=== PATIENT | female | born 1955 | race Caucasian/White ===

== ENCOUNTER 2021-01-23 23:09 | Inpatient (IN) | payer MEDICARE ==
[~2021-01-23] VITALS: Ht 165.1 cm; Wt 97.5 kg
[~2021-01-23 23:09] MED LIST: AMLODIPINE BESYL5 MG PO; ASPIR 8181 MG PO; AUGMENTIN 500-1 EACH PO; BUMETANIDE2 MG PO; CATAPRES 0.1MG0.1 MG PO; COMBIVENT RESPIM4 GM INH; CRESTOR40 MG PO; CYMBALTA60 MG PO; DEMADEX 20 MG T20 MG PO; DIOVAN160 MG PO; DOXYCYCLINE HY100 M2 PO; FERROUS SULFAT325 M2 PO; HUMALOG 10100 UNITS/ SC; HYDRALAZINE HCL50 MG PO; HYDROCODON-ACE1 EAC6 PO; LANTUS INS100 UTS/M1 SQ; LANTUS SOL100 UNIT/1 SQ; LANTUS100 UNIT/1 SQ; LASIX40 MG PO; METOPROLOL SUC100 MG PO; NEURONTIN400 MG PO; NEURONTIN800 MG PO; NITROSTAT0.4 MG SL; NORVASC10 MG PO; PERCOCET 10-321 EACH PO; PLAVIX75 MG PO; PROTONIX 40 MG40 M1 PO; SYNTHROID175 MCG PO; TOPROL XL100 MG PO; TRAZODONE HCL100 MG PO; ZETIA10 MG PO; [UNRECOGNIZED DRUG - CODE] SQ
[2021-01-24] MEDS ORDERED: HYDRALAZINE HCL50 MG PO (00:59)
[2021-01-24] MEDS ORDERED: GAS-X125 MG PO (08:47)
[2021-01-24] MEDS ORDERED: DRISDOL1250 MCG PO (09:05)
[2021-01-25 02:35] LABS: HEMOGLOBIN 10.3 gm/dl (12.3-15.3); RED BLOOD COUNT 4.18 M/UL (4.00-5.10); WHITE BLOOD COUNT 10.3 K/UL (4.5-11.0)
--- NOTE | 2021-01-25 13:40 | NUR ---
ST NOTIFIED OF NEW CONSULT
[2021-01-26 03:56] LABS: HEMOGLOBIN 10.9 gm/dl (12.3-15.3); RED BLOOD COUNT 4.45 M/UL (4.00-5.10); WHITE BLOOD COUNT 10.1 K/UL (4.5-11.0)
[2021-01-27 03:21] LABS: HEMOGLOBIN 10.7 gm/dl (12.3-15.3); RED BLOOD COUNT 4.39 M/UL (4.00-5.10); WHITE BLOOD COUNT 10.1 K/UL (4.5-11.0)
--- NOTE | 2021-01-27 10:30 | NUR ---
SPOKE TO A NURSE PRACTIONER MRS. ARMANDO AT [facility] RE BLADDER STIMULATOR TO SEE IF IT MRI COMPATABLE PER DR. FLORES REQUEST AND SHE STATES THEY DO NOT HAVE THE SERIAL NUMBER TO THE STIMULATOR BUT WOULD REACH OUT TO A REP FOR THE DEVICE AND GET BACK TO ME.
[2021-01-28 02:30] LABS: HEMOGLOBIN 10.5 gm/dl (12.3-15.3); RED BLOOD COUNT 4.23 M/UL (4.00-5.10); WHITE BLOOD COUNT 9.3 K/UL (4.5-11.0)
[2021-01-28 12:13] LABS: CREATININE, URINE 29.2 mg/dL (Not Estab.)
[2021-01-30 03:08] LABS: HEMOGLOBIN 10.2 gm/dl (12.3-15.3); RED BLOOD COUNT 4.13 M/UL (4.00-5.10); WHITE BLOOD COUNT 8.1 K/UL (4.5-11.0)
[2021-01-30 08:44] LABS: URINE CREATININE 67.8 mg/dL
[2021-02-01 02:43] LABS: RED BLOOD COUNT 4.12 M/UL (4.00-5.10); WHITE BLOOD COUNT 7.7 K/UL (4.5-11.0)
[2021-02-02 04:29] LABS: HEMOGLOBIN 10.1 gm/dl (12.3-15.3); RED BLOOD COUNT 4.14 M/UL (4.00-5.10); WHITE BLOOD COUNT 8.4 K/UL (4.5-11.0)
[2021-02-02 10:15] LABS: HBSAG SCREEN Negative (Negative); HEP B CORE AB, TOT Negative (Negative); HEP C VIRUS AB <0.1 (0.0-0.9)
[2021-02-02 13:10] LABS: ANTISTREPTOLYSIN O AB 51.6 IU/mL (0.0-200.0); COMPLEMENT C3, SERUM 122 mg/dL (82-167); COMPLEMENT C4, SERUM 30 mg/dL (12-38)
[2021-02-02 14:12] LABS: ANTI-DSDNA ANTIBODIES 3 IU/mL (0-9)
[2021-02-02 16:12] LABS: ATYPICAL PANCA <1:20 titer (Neg:<1:20); CYTOPLASMIC (C-ANCA) <1:20 titer (Neg:<1:20); PERINUCLEAR (P-ANCA) <1:20 titer (Neg:<1:20)
[2021-02-02 17:12] LABS: A/G RATIO 0.7 (0.7-1.7); ALBUMIN 2.2 g/dL (2.9-4.4); ALPHA-1-GLOBULIN 0.5 g/dL (0.0-0.4); ALPHA-2-GLOBULIN 1.1 g/dL (0.4-1.0); BETA GLOBULIN 1.1 g/dL (0.7-1.3); GAMMA GLOBULIN 0.5 g/dL (0.4-1.8); GLOBULIN, TOTAL 3.2 g/dL (2.2-3.9); IMMUNOGLOBULIN A, QN, SERUM 375 mg/dL (87-352); IMMUNOGLOBULIN G, QN, SERUM 614 mg/dL (586-1602); IMMUNOGLOBULIN M, QN, SERUM 72 mg/dL (26-217); M-SPIKE Not Observed g/dL (Not Observed); PROTEIN, TOTAL, SERUM 5.4 g/dL (6.0-8.5)
--- NOTE | 2021-02-03 12:16 | NUR ---
SPOKE WITH MEDICAL RECORDS AT [facility] IN [place] REGARDING THE PATIENT HAD A BLADDER CATH PLACED IN [address] TALBERT STATES SHE IS UNSURE IF THE PATIENT CAN HAVE MRI WITH THIS IN PLACE. MEDICAL RECORDS STATE THAT A FACE SHEET AND REQUEST OF WHAT WE NEED WHICH IS THOSE MEDICAL RECORDS WHERE THE BLADDER CATH WAS PLACED TO BE FAXED OVER. I FAXED THOSE OVER TO FAX NUMBER . PHONE NUMBER TO [facility] IS . AWAITING FOR THOSE RECORDS TO BE FAXED BACK AT THIS TIME DR TALBERT MADE AWARE.
[2021-02-04 04:01] LABS: HEMOGLOBIN 10.4 gm/dl (12.3-15.3); RED BLOOD COUNT 4.27 M/UL (4.00-5.10); WHITE BLOOD COUNT 9.2 K/UL (4.5-11.0)
[2021-02-04] MEDS ORDERED: CRESTOR 10 MG T10 MG PO (08:49)
[2021-02-04] MEDS ORDERED: HYDRALAZINE HCL50 MG PO (08:49)
[2021-02-04] MEDS ORDERED: BUMETANIDE1 MG PO (08:49)
[2021-02-04] MEDS ORDERED: LOPRESSOR 50 MG50 MG PO (08:49)
[2021-02-04] MEDS ORDERED: CATAPRES 0.1MG0.1 MG PO (08:49)
[2021-02-04] MEDS ORDERED: GABAPENTIN300 MG PO (08:49)
[2021-02-04] MEDS ORDERED: ISORDIL TAB 3030 MG PO ×2 (09:32→09:36)
[2021-02-04] MEDS ORDERED: CONSTULOSE10 GM/15 M PO (09:42)
[2021-02-04] MEDS ORDERED: ISOSORBIDE MON120 MG PO (11:20)
[2021-02-05 11:21] LABS: HEMOGLOBIN 10.2 gm/dl (12.3-15.3); RED BLOOD COUNT 4.23 M/UL (4.00-5.10)
[2021-02-05 11:24] LABS: WHITE BLOOD COUNT 11.6 K/UL (4.5-11.0)
[2021-02-06 04:21] LABS: HEMOGLOBIN 10.1 gm/dl (12.3-15.3); RED BLOOD COUNT 4.07 M/UL (4.00-5.10); WHITE BLOOD COUNT 11.2 K/UL (4.5-11.0)
[2021-02-07 05:08] LABS: HEMOGLOBIN 10.1 gm/dl (12.3-15.3); RED BLOOD COUNT 4.03 M/UL (4.00-5.10)
[2021-02-07 05:09] LABS: WHITE BLOOD COUNT 8.2 K/UL (4.5-11.0)
[2021-02-08 10:59] LABS: URINE CREATININE 44.6 mg/dL
[2021-02-08 20:31] LABS: HEMOGLOBIN 9.4 gm/dl (12.3-15.3); RED BLOOD COUNT 3.82 M/UL (4.00-5.10); WHITE BLOOD COUNT 8.6 K/UL (4.5-11.0)
[2021-02-09 06:26] LABS: HEMOGLOBIN 9.6 gm/dl (12.3-15.3); RED BLOOD COUNT 3.92 M/UL (4.00-5.10); WHITE BLOOD COUNT 8.1 K/UL (4.5-11.0)
[2021-02-10 02:23] LABS: HEMOGLOBIN 9.3 gm/dl (12.3-15.3); RED BLOOD COUNT 3.79 M/UL (4.00-5.10); WHITE BLOOD COUNT 7.3 K/UL (4.5-11.0)
[2021-02-11 02:46] LABS: HEMOGLOBIN 9.6 gm/dl (12.3-15.3); RED BLOOD COUNT 3.89 M/UL (4.00-5.10); WHITE BLOOD COUNT 8.9 K/UL (4.5-11.0)
[2021-02-11] MEDS ORDERED: COZAAR 50MG TAB50 MG PO (10:50)
[2021-02-11] MEDS ORDERED: AMLODIPINE BESYL5 MG PO (10:50)
[2021-02-11] MEDS ORDERED: HYDRALAZINE HCL50 MG PO (10:50)
[2021-02-11] MEDS ORDERED: ISORDIL TAB 2020 MG PO (10:50)
[2021-02-11] MEDS ORDERED: CARVEDILOL12.5 MG PO (10:50)
[2021-02-11] MEDS ORDERED: ZETIA10 MG PO (10:55)
[2021-02-11] MEDS ORDERED: POLYETHYLENE GL17 GM PO (10:55)
[2021-02-11] MEDS ORDERED: FERROUS GLUCON324 M1 PO (10:55)
[2021-02-11] MEDS ORDERED: SENNA LAX8.6 MG PO (10:55)
--- NOTE | 2021-02-11 15:55 | NUR ---
FAXED PAPERWORK TO [facility] AT 1330 TODAY. FAX RECIEVED SHEET PRINTED. CALLED EMS AT 1530 ASKING FOR PROGRESS ON PICKUP, BESSIE STATED THE FAX WASNT RECIEVED, EMS DID NOT COMMUNICATE THIS TO THE FACILITY. THE INFORMATION WAS FAXED AGAIN TODAY AT 1545, AGAIN FAX RECEIVED SHEET PRINTED. CALLED EMS AT 1600 TO MAKE SURE INFORMATION HAD BEEN RECEICED, BESSIE STATED IT WAS RECEIVED AND A UNIT IS ON THE WAY
== END 2021-02-11 16:25 | DRG 291 ==
LOC: PROG CARE 01-24 01:42
PROVIDERS: Family Medicine; Internal Medicine; Internal Medicine Nephrology; ADMIT Internal Medicine
DX: I13.0 Hypertensive heart and chronic kidney disease with heart failure and stage 1 through stage 4 chronic kidney disease, or unspecified chronic kidney disease (principal); I50.43 Acute on chronic combined systolic (congestive) and diastolic (congestive) heart failure; I63.89 Other cerebral infarction; N18.5 Chronic kidney disease, stage 5; N04.9 Nephrotic syndrome with unspecified morphologic changes; G81.91 Hemiplegia, unspecified affecting right dominant side; N17.9 Acute kidney failure, unspecified; G93.49 Other encephalopathy; M79.7 Fibromyalgia; I13.2 Hypertensive heart and chronic kidney disease with heart failure and with stage 5 chronic kidney disease, or end stage renal disease; E11.22 Type 2 diabetes mellitus with diabetic chronic kidney disease; E03.9 Hypothyroidism, unspecified; D50.9 Iron deficiency anemia, unspecified; K59.00 Constipation, unspecified; I25.10 Atherosclerotic heart disease of native coronary artery without angina pectoris; J44.9 Chronic obstructive pulmonary disease, unspecified; F17.200 Nicotine dependence, unspecified, uncomplicated; E78.5 Hyperlipidemia, unspecified; K21.9 Gastro-esophageal reflux disease without esophagitis; F32.9 Major depressive disorder, single episode, unspecified; G89.29 Other chronic pain; I16.0 Hypertensive urgency; I65.09 Occlusion and stenosis of unspecified vertebral artery; E87.6 Hypokalemia; Z20.822 Contact with and (suspected) exposure to COVID-19; M47.816 Spondylosis without myelopathy or radiculopathy, lumbar region; Z90.721 Acquired absence of ovaries, unilateral; Z87.442 Personal history of urinary calculi; Z90.710 Acquired absence of both cervix and uterus; Z90.49 Acquired absence of other specified parts of digestive tract; Z82.49 Family history of ischemic heart disease and other diseases of the circulatory system; Z88.8 Allergy status to other drugs, medicaments and biological substances
CPT/HCPCS: 36415; 70450; 74230; 76700; 80048; 80053; 80069; 80307; 82043; 82140; 82550; 82553; 82565; 82570; 82575; 82728; 82784; 82962; 83520; 83540; 83550; 83735; 83883; 84132; 84155; 84156; 84165; 84484; 85025; 85027; 86038; 86060; 86160; 86162; 86225; 86256; 86334; 86704; 86706; 86708; 86803; 87340; 87635; 92526; 92610; 92611-GN; 93005; 93880; 94640; 94664; 94760; 97110; 97110-GP-CQ; 97162; 97166; 97530; 97530-GP-CQ; 97535; J0360; J1205; J1644; J1756; J1940; U0002

== ENCOUNTER 2021-02-16 01:49 | Inpatient (IN) | payer MEDICARE ==
[~2021-02-16] VITALS: Ht 165.1 cm; Wt 97.2 kg
[~2021-02-16 01:49] MED LIST changes: +BUMETANIDE1 MG PO; +CARVEDILOL12.5 MG PO; +CONSTULOSE10 GM/15 M PO; +COZAAR 50MG TAB50 MG PO; +CRESTOR 10 MG T10 MG PO; +DRISDOL1250 MCG PO; +FERROUS GLUCON324 M1 PO; +GABAPENTIN300 MG PO; +GAS-X125 MG PO; +ISORDIL TAB 2020 MG PO; +ISORDIL TAB 3030 MG PO; +ISOSORBIDE MON120 MG PO; +LOPRESSOR 50 MG50 MG PO; +POLYETHYLENE GL17 GM PO; +SENNA LAX8.6 MG PO
[2021-02-16 02:11] LABS: RED BLOOD COUNT 3.64 M/UL (4.00-5.10); WHITE BLOOD COUNT 11.1 K/UL (4.5-11.0)
[2021-02-17 03:30] LABS: HEMOGLOBIN 8.9 gm/dl (12.3-15.3); RED BLOOD COUNT 3.58 M/UL (4.00-5.10)
[2021-02-17 10:42] LABS: LDH, BODY FLUID 70 U/L; TOTAL PROTEIN, BODY FLUID 1.8 gm/dL
[2021-02-17 12:05] LABS: BODY FLUID SOURCE PLEURAL
[2021-02-18 03:35] LABS: HEMOGLOBIN 8.7 gm/dl (12.3-15.3); RED BLOOD COUNT 3.5 M/UL (4.00-5.10); WHITE BLOOD COUNT 9.5 K/UL (4.5-11.0)
[2021-02-19 03:45] LABS: RED BLOOD COUNT 3.66 M/UL (4.00-5.10); WHITE BLOOD COUNT 11.3 K/UL (4.5-11.0)
[2021-02-20 04:50] LABS: HEMOGLOBIN 8.7 gm/dl (12.3-15.3); RED BLOOD COUNT 3.52 M/UL (4.00-5.10)
[2021-02-21 02:51] LABS: HEMOGLOBIN 8.5 gm/dl (12.3-15.3); RED BLOOD COUNT 3.39 M/UL (4.00-5.10); WHITE BLOOD COUNT 9.3 K/UL (4.5-11.0)
[2021-02-22 03:50] LABS: HEMOGLOBIN 8.6 gm/dl (12.3-15.3); RED BLOOD COUNT 3.39 M/UL (4.00-5.10); WHITE BLOOD COUNT 7.8 K/UL (4.5-11.0)
[2021-02-25 03:09] LABS: HEMOGLOBIN 8.3 gm/dl (12.3-15.3); RED BLOOD COUNT 3.31 M/UL (4.00-5.10); WHITE BLOOD COUNT 9.3 K/UL (4.5-11.0)
[2021-02-26 21:12] LABS: BUN/CREATININE RATIO 18 (0-10)
--- NOTE | 2021-02-27 03:30 | NUR ---
02/26/21 @ 1950 PT SCREAMED OUT HELP. WHEN INTO ROOM AND PT STATES I CANT BREATH. PT IS VERY ANXIOUS. O2 SAT 88 TO 90% ON 3L/NC. O2 INCREASED TO 4L/NC. RESP LABORED. DIMINSIHED LUNG SOUNDS NOTED THROUGH OUT. HR74 BP 190/75. O2 SAT 94% WITH 4L/NC. PT C/O BURNING IN CHEST. 2+ EDEMA NOTED TO BLE. SEE 1949 ASSESSMENT. HYDRALAZINE 10MG IV GIVEN. WILL NOTIFY
--- NOTE | 2021-02-27 03:42 | NUR ---
02/26/21 6978 SOFTWARE TEAM LEADER MAHIN NOTIFIED OF SITUATION WITH PT, BNP [id number], CREATININE OF 3.18 AND THAT MD HAS ORDERED LASIX 60MG IV. INSTRUCTED TO THAT PT NEEDS IT. PT CAN LATER BE PLACE ON DOPAMINIE DRIP IF NEEDED TOMORROW FOR TO IMPROVE AND KIDNEYS IF NEEDED.
--- NOTE | 2021-02-27 03:46 | NUR ---
02/26/21 2155 WAS INSTRUCTED BY TO GIVE ALBUMIN 1ST THEN WHEN IT WAS DONE WAIT 10 MINS AND GIVE LASIX.
--- NOTE | 2021-02-27 03:48 | NUR ---
02/27/21 0030 GOT ORDER FOR PEPCID FOR PT ITCHING. PT ASLEEP WITH NO C/O ITCHING AT THIS TIME.
--- NOTE | 2021-02-27 03:49 | NUR ---
02/26/212024 JONATHON WALLACE MD LATE GETTING INTO COMPUTER WAS HAVING PROBLEMS WITH COMPUTER TAKING ORDERS. THERE WERE ORDERS THAT HAD NOT BEEN COMPLETED WHEN ENETERED.
--- NOTE | 2021-02-27 03:50 | NUR ---
02/27/21 PT ASLEEP RESP EVEN NONLABORED. LUNGS CLEAR AND DIMISHED AT THIS TIME. O2 SAT 97%.
--- NOTE | 2021-02-27 03:51 | NUR ---
02/26/21 2100 PT RESTING QUEITLY. RESP EVEN NOT LABORED. DIMISHED LUNGS SOUNDS NOTED. WITH OCCASSIONAL WHEEZING NOTED WHEN PT BREATHES IN. WILL CIONTINUE RO MONITOR PT. SEE VITAL SIGNS
[2021-02-28 03:03] LABS: HEMOGLOBIN 8.1 gm/dl (12.3-15.3); RED BLOOD COUNT 3.22 M/UL (4.00-5.10); WHITE BLOOD COUNT 8.9 K/UL (4.5-11.0)
[2021-03-01 03:32] LABS: HEMOGLOBIN 8.5 gm/dl (12.3-15.3); RED BLOOD COUNT 3.41 M/UL (4.00-5.10); WHITE BLOOD COUNT 9.2 K/UL (4.5-11.0)
[2021-03-01 11:15] LABS: COMPLEMENT C3, SERUM 136 mg/dL (82-167); COMPLEMENT C4, SERUM 26 mg/dL (12-38)
[2021-03-01 16:11] LABS: A/G RATIO 0.9 (0.7-1.7); ALBUMIN 2.7 g/dL (2.9-4.4); ALPHA-1-GLOBULIN 0.4 g/dL (0.0-0.4); ALPHA-2-GLOBULIN 1.1 g/dL (0.4-1.0); GAMMA GLOBULIN 0.6 g/dL (0.4-1.8); M-SPIKE Not Observed g/dL (Not Observed); PROTEIN, TOTAL, SERUM 5.7 g/dL (6.0-8.5)
[2021-03-02 15:14] LABS: ATYPICAL PANCA <1:20 titer (Neg:<1:20); CYTOPLASMIC (C-ANCA) <1:20 titer (Neg:<1:20); PERINUCLEAR (P-ANCA) <1:20 titer (Neg:<1:20)
== END 2021-03-02 16:01 | disposition home or self-care (01) | DRG 291 ==
LOC: ER1 01:49 → CDU 02:50 → M/S 02:50
PROVIDERS: Family Medicine; Internal Medicine; Internal Medicine Nephrology; Physician Assistant; ADMIT Internal Medicine
PROC: 0W9B30Z Drainage of Left Pleural Cavity with Drainage Device, Percutaneous Approach (ICD-10-PCS; principal; 2021-02-17)
DX: I13.0 Hypertensive heart and chronic kidney disease with heart failure and stage 1 through stage 4 chronic kidney disease, or unspecified chronic kidney disease (principal); I50.33 Acute on chronic diastolic (congestive) heart failure; J18.9 Pneumonia, unspecified organism; J96.21 Acute and chronic respiratory failure with hypoxia; N18.4 Chronic kidney disease, stage 4 (severe); N17.9 Acute kidney failure, unspecified; J90 Pleural effusion, not elsewhere classified; J44.0 Chronic obstructive pulmonary disease with (acute) lower respiratory infection; N30.00 Acute cystitis without hematuria; Z20.822 Contact with and (suspected) exposure to COVID-19; E66.01 Morbid (severe) obesity due to excess calories; D50.9 Iron deficiency anemia, unspecified; K59.00 Constipation, unspecified; F41.9 Anxiety disorder, unspecified; E11.22 Type 2 diabetes mellitus with diabetic chronic kidney disease; F17.200 Nicotine dependence, unspecified, uncomplicated; E78.5 Hyperlipidemia, unspecified; M79.7 Fibromyalgia; I27.20 Pulmonary hypertension, unspecified; I25.10 Atherosclerotic heart disease of native coronary artery without angina pectoris; E03.9 Hypothyroidism, unspecified; K21.9 Gastro-esophageal reflux disease without esophagitis; Z95.5 Presence of coronary angioplasty implant and graft; Z90.49 Acquired absence of other specified parts of digestive tract; Z86.73 Personal history of transient ischemic attack (TIA), and cerebral infarction without residual deficits; Z79.02 Long term (current) use of antithrombotics/antiplatelets; Z79.82 Long term (current) use of aspirin; Z90.710 Acquired absence of both cervix and uterus; Z98.890 Other specified postprocedural states; Z88.8 Allergy status to other drugs, medicaments and biological substances; Z82.49 Family history of ischemic heart disease and other diseases of the circulatory system; Z79.899 Other long term (current) drug therapy; Z68.36 Body mass index [BMI] 36.0-36.9, adult
CPT/HCPCS: ECHO; 36415; 70450; 71045; 71250; 80048; 80053; 81001; 82550; 82553; 82728; 82962; 83540; 83550; 83615; 83874; 83880; 83883; 84155; 84157; 84165; 84484; 85025; 85027; 85610; 85730; 86160; 86256; 87040; 87070; 87205; 89051; 93005; 93306; 94664; 94760; 96365; 97110; 97110-GP-CQ; 97116; 97116-GP-CQ; 97162; 97166; 97530; 97530-GP-CQ; 99285; C1729; J0360; J0692; J1205; J1644; J1756; J1940; J1956; J2270; J2543; P9047; U0002